=== PATIENT | female | born 1980 ===

== ENCOUNTER 2016-08-04 16:09 | Emergency (ER) | payer SELFPAY ==
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
--- NOTE | 2016-08-04 17:00 | ED ORDER SUMMARY ---
..... Patient: FRANCISCO SOLANO OrderSheet [facility] VisitID: [id number] [address] [place] [address] 36y, F Registration Date/Time: 08/04/2016 ORDER SHEET Weight: 70.3 kg (stated) Allergies: No Known Drug Allergy GENERAL ORDERS: CT Head wo Cont Urgent (16:18 08/04/2016 Anat P.A.-C) (Ack 16:22 Carroll) (16:39 EHassan R.N.) CT Cervical Spine wo Cont Urgent (16:18 08/04/2016 Anat P.A.-C) (Ack 16:22 Carroll) (16:39 EHassan R.N.) MEDICATION ORDERS: IV FLUIDS: ORDER SHEET NOTES: [Electronically signed by Irene Roque-Rashawn (19:26 08/04/2016)] [Electronically signed by Mary Scott R.N. (23:29 08/04/2016)] [Electronically locked/signed by Mary Scott R.N. (23:29 08/04/2016)]
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
--- NOTE | 2016-08-04 17:00 | ED ORDER SUMMARY ---
..... Patient: FRANCISCO SOLANO OrderSheet VisitID: [id number] [address] [place] [address] 36y, F Registration Date/Time: 08/04/2016 ORDER SHEET Weight: 70.3 kg (stated) Allergies: No Known Drug Allergy GENERAL ORDERS: CT Head wo Cont Urgent (16:18 08/04/2016 Anat P.A.-C) (Ack 16:22 Carroll) (16:39 EHassan R.N.) CT Cervical Spine wo Cont Urgent (16:18 08/04/2016 Anat P.A.-C) (Ack 16:22 Carroll) (16:39 EHassan R.N.) MEDICATION ORDERS: IV FLUIDS: ORDER SHEET NOTES: [Electronically signed by Irene Roque-Rashawn (19:26 08/04/2016)] [Electronically signed by Mary Scott R.N. (23:29 08/04/2016)] [Electronically locked/signed by Mary Scott R.N. (23:29 08/04/2016)]
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
--- NOTE | 2016-08-04 23:29 | ED MAR SUMMARY ---
..... Medication Administration Record [facility] [address] [place], [place] [id number] Patient: FRANCISCO SOLANO Visit ID: [id number] 36y, F Weight: 70.3 kg Height/Length: 66 in BMI: 25 ALLERGIES: No Known Drug Allergy
--- NOTE | 2016-08-04 23:29 | ED MAR SUMMARY ---
..... Medication Administration Record [facility] [address] [place], [place] [id number] Patient: FRANCISCO SOLANO Visit ID: [id number] 36y, F Weight: 70.3 kg Height/Length: 66 in BMI: 25 ALLERGIES: No Known Drug Allergy
--- NOTE | 2016-08-04 23:29 | ED MED RECONCILIATION SUMMARY ---
Patient: XIOMARA CAROLIN Medication Reconciliation Report [facility] VisitID: [id number] [address] [place] [address] 36y, F Registration Date/Time: 08/04/2016 Weight: 70.3 kg Height/Length: 66 in. BMI: 25.0 ALLERGIES: No Known Drug Allergy The patient's Home Medications are listed below: NONE. The source(s) of the original Home Medication information: Not obtained. The following Medications were given to the patient in the Emergency Department: None. The following Medications were prescribed to the patient: Take OTC medications according to label instructions. Available over the counter. -- Irene Roque, P.A.-C Acetaminophen (available over the counter): take according to label instructions. -- Irene Roque, P.A.-C Motrin (available over the counter): take according to label instructions. -- Irene Roque, P.A.-C Ibuprofen 800 mg tablets: take 1 tablet orally every 8 hours for 5 days, as needed for pain. Dispense fifteen (15). No refill. -- Irene Roque, P.A.-C
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
--- NOTE | 2016-08-04 23:29 | ED MED RECONCILIATION SUMMARY ---
Patient: XIOMARA CAROLIN Medication Reconciliation Report [facility] VisitID: [id number] [address] [place] [address] 36y, F Registration Date/Time: 08/04/2016 Weight: 70.3 kg Height/Length: 66 in. BMI: 25.0 ALLERGIES: No Known Drug Allergy The patient's Home Medications are listed below: NONE. The source(s) of the original Home Medication information: Not obtained. The following Medications were given to the patient in the Emergency Department: None. The following Medications were prescribed to the patient: Take OTC medications according to label instructions. Available over the counter. -- Irene Roque, P.A.-C Acetaminophen (available over the counter): take according to label instructions. -- Irene Roque, P.A.-C Motrin (available over the counter): take according to label instructions. -- Irene Roque, P.A.-C Ibuprofen 800 mg tablets: take 1 tablet orally every 8 hours for 5 days, as needed for pain. Dispense fifteen (15). No refill. -- Irene Roque, P.A.-C
== END 2016-08-04 17:20 | disposition home or self-care (01) ==
LOC: ED SRH 16:09
DX: S16.1XXA Strain of muscle, fascia and tendon at neck level, initial encounter (principal); S09.90XA Unspecified injury of head, initial encounter; V53.5XXA Driver of pick-up truck or van injured in collision with car, pick-up truck or van in traffic accident, initial encounter; Y93.89 Activity, other specified; Y92.410 Unspecified street and highway as the place of occurrence of the external cause; Y99.8 Other external cause status